=== PATIENT | female | born 1955 | race African-American/Black ===

== ENCOUNTER 2016-12-14 15:43 | Day surgery (SDC) | payer MEDICARE, MEDICAID ==
[~2016-12-14 15:43] MED LIST: NALOXONE HCL INJ/PF 0.4 MG/1 ML SDV ONE
[2016-12-14] MEDS ORDERED: FENTANYL CITRATE INJ/PF 100 MCG/2 ML AMPUL ONE (15:44)
[2016-12-14] MEDS ORDERED: FLUMAZENIL INJ 0.5 MG/5 ML VIAL IV ONE (15:44)
[2016-12-14] MEDS ORDERED: EPINEPHRINE INJ 1 MG/10 ML DISP.SYRIN ONE (15:45)
[2016-12-14] MEDS ORDERED: GLUCAGON,HUMAN RECOMB 1 MG INJ ONE (15:45)
[2016-12-14] MEDS: MIDAZOLAM 2 MG/2 ML INJ ONE ×2 (16:44→16:58)
--- NOTE | 2016-12-14 17:17 | Operative Report ---
Operative Report DATE OF SURGERY: 12/14/16 Operative Report: Pre-op diagnosis: Dysphagia and malfunctioning gastrostomy tube Post-op diagnosis: Gastric foreign body Surgery: Esophagogastroduodenoscopy with foreign body(gastric tube bumper) removal and replacement of G-tube Medications: Versed 2mg Fentanyl 50mcg IV push Tissue removed: None Procedure: After informed consent obtained from patient family, the throat was sprayed with Hurricane and conscious sedation was achieved. The upper endoscope was inserted into the esophagus under direct vision and advanced into the stomach. The duodenum was entered and examined to the second part. An old 20F G-tube was identified in the gastric body. I attempted to remove this tube by pulling from the outside but the bumper will not collapse. The tube was then cut close to the abdominal wall while the inner bumper was grasped with a Horvath net. It was difficult getting the foreign body out using the Horvath net. The polypectomy snare was then used and I was able to pulled the bumper out of the patient. A 22 Argentine replacement gastrostomy tube was placed the balloon filled with 6mls of water. Endoscope was then slowly pulled out of the patient as the mucosa was examined into details. Patient tolerated procedure well. Findings Esophagus: Normal Antrum: Normal Body: Gastrostomy tube in place Fundus: Normal Duodenum first part: Normal Duodenum second part: Normal Plan: Resume feeding OPERATION: .
[2016-12-14 18:10] VITALS: BP 158/66
== END 2016-12-14 18:45 | disposition other institution (70) ==
LOC: END 15:43
PROVIDERS: ATTEND Internal Medicine Gastroenterology
PROC: 0D20XUZ Change Feeding Device in Upper Intestinal Tract, External Approach (ICD-10-PCS; principal; 2016-12-14 16:15)
PROC: 0DC68ZZ Extirpation of Matter from Stomach, Via Natural or Artificial Opening Endoscopic (ICD-10-PCS; 2016-12-14 16:15)
DX: T18.2XXA Foreign body in stomach, initial encounter (principal); X58.XXXA Exposure to other specified factors, initial encounter; R63.3 Feeding difficulties; I69.391 Dysphagia following cerebral infarction; Z93.1 Gastrostomy status; I10 Essential (primary) hypertension; E11.9 Type 2 diabetes mellitus without complications; E78.00 Pure hypercholesterolemia, unspecified; F41.9 Anxiety disorder, unspecified; F32.9 Major depressive disorder, single episode, unspecified; K21.9 Gastro-esophageal reflux disease without esophagitis; G40.909 Epilepsy, unspecified, not intractable, without status epilepticus; F25.9 Schizoaffective disorder, unspecified; F80.2 Mixed receptive-expressive language disorder; Z79.899 Other long term (current) drug therapy; Z79.82 Long term (current) use of aspirin; Z79.4 Long term (current) use of insulin; Z79.02 Long term (current) use of antithrombotics/antiplatelets; Z85.3 Personal history of malignant neoplasm of breast
CPT/HCPCS: 43760; 43247; 82962; J2250; J3010; J0171; J1610; J2310; J3490

== ENCOUNTER 2017-05-20 04:17 | Emergency (ER) | payer MEDICARE, MEDICAID ==
--- NOTE | 2017-05-20 04:58 | RADIOLOGY REPORT (SQ) ---
EXAM DESCRIPTION: SOFT TISSUE NECK COMPLETED DATE/TIME: 05/20/2017 4:48 am REASON FOR STUDY: ? swallowed foreign body (teeth) COMPARISON: None. NUMBER OF VIEWS: 2. TECHNIQUE: AP and lateral radiographic image of the soft tissues of the neck. LIMITATIONS: None. FINDINGS: EPIGLOTTIS: Normal. Contour normal. Aryepiglottic folds normal. PREVERTEBRAL SOFT TISSUES: Normal. No soft tissue swelling. SUBGLOTTIC AREA: Normal. No narrowing. RETROPHARYNGEAL SPACE: Normal. No soft tissue masses. BONES: No significant findings. Thoracic spinal hardware partially imaged. LUNG APICES: Mild interstitial markings. OTHER: No radiopaque foreign body. Atherosclerosis. IMPRESSION: NEGATIVE STUDY OF THE SOFT TISSUES OF THE NECK. No radiopaque foreign body, as queried. TECHNICAL DOCUMENTATION: JOB ID: [id number] [employer]- All Rights Reserved
--- NOTE | 2017-05-20 05:01 | RADIOLOGY REPORT (SQ) ---
EXAM DESCRIPTION: CHEST SINGLE VIEW COMPLETED DATE/TIME: 05/20/2017 4:48 am REASON FOR STUDY: swallowed foreign body COMPARISON: 12/30/2015. EXAM PARAMETERS: NUMBER OF VIEWS: One view. TECHNIQUE: Single frontal radiographic view of the chest acquired. RADIATION DOSE: NA LIMITATIONS: None. FINDINGS: LUNGS AND PLEURA: No opacities, masses or pneumothorax. No pleural effusion. MEDIASTINUM AND HILAR STRUCTURES: No masses. Contour normal. HEART AND VASCULAR STRUCTURES: Mild enlargement of the cardiac silhouette. Atherosclerosis. BONES: No acute findings. HARDWARE: Extensive thoracolumbar spinal hardware, partially imaged. OTHER: No other significant finding. IMPRESSION: NO ACUTE RADIOGRAPHIC FINDING IN THE CHEST. No radiopaque foreign body. TECHNICAL DOCUMENTATION: JOB ID: [id number]
--- NOTE | 2017-05-20 05:32 | ER Document Report ---
ED General - General Chief Complaint: possible foreign body Stated Complaint: POSSIBLY SWALLOWED FOREIGN OBJECT Time Seen by Provider: 05/20/17 05:30 Notes: Patient is a 62-year-old female [facility] because they were cleaning her [facility] and 2 of her teeth broke free and she swallowed them. The apparently immediately then tried to do the Heimlich maneuver on her several times and this did not work and therefore they sent her to the ER. Patient currently is in no distress and looks well. She has no difficulty breathing. No stridor. She is nonverbal and unable to answer my questions. She does not eat by mouth and has a feeding tube in place. TRAVEL OUTSIDE OF THE [place] IN LAST 30 DAYS: No - Related Data Allergies/Adverse Reactions: latex [Latex] Allergy (Verified 12/14/16 16:09) Past Medical History - Social History Smoking Status: Unknown if Ever Smoked Chew tobacco use (# tins/day): No Frequency of alcohol use: None Drug Abuse: None Family History: Reviewed & Not Pertinent - Past Medical History Cardiac Medical History: Reports: Hx Coronary Artery Disease - HYPERCHOLESTEROLEMIA, Hx Hypercholesterolemia, Hx Hypertension Denies: Hx Heart Attack Pulmonary Medical History: Denies: Hx Asthma, Hx Bronchitis, Hx COPD, Hx Pneumonia Neurological Medical History: Reports: Hx Cerebrovascular Accident - SEP 2012, Hx Seizures - denies, states strokes, hospital notes states seizures Endocrine Medical History: Reports: Hx Diabetes Mellitus Type 2 Renal/ Medical History: Denies: Hx Peritoneal Dialysis GI Medical History: Reports: Hx Irritable Bowel - Constipation Musculoskeltal Medical History: Reports Hx Arthritis, Reports Hx Musculoskeletal Deformity - Scoliosis Psychiatric Medical History: Reports: Hx Depression Past Surgical History: Reports: Hx Lumpectomy, Hx Orthopedic Surgery - Scoliosis surgery, Hx Tubal Ligation. Denies: Hx Hysterectomy - Immunizations Immunizations up to date: Yes Hx Diphtheria, Pertussis, Tetanus Vaccination: Yes Hx Pneumococcal Vaccination: 09/05/12 Review of Systems - Review of Systems -: Yes ROS unobtainable due to patient's medical condition - Patient is nonverbal. Physical Exam - Vital signs Vitals: Pulse Resp BP Pulse Ox 55 L 12 141/64 H 94 05/20/17 04:26 05/20/17 04:26 05/20/17 04:26 05/20/17 04:26 - Notes Notes: General Appearance: Well nourished, alert, cooperative, no acute distress, no obvious discomfort. Vitals: reviewed, See vital signs table. Head: no swelling or tenderness to the head Eyes: PERRL, EOMI, Conjuctiva clear Mouth: No decreasd moisture. Patient does have a small amount of drool on initial exam. When I wipe this away she does not make much more trouble. She is able to actively swallow her saliva without any apparent difficulty. No blood in the mouth. Throat: No tonsillar inflammation, No airway obstruction, No lymphadenopathy Neck: Supple, no neck tenderness, No thyromegaly Lungs: No wheezing, No rales, No rhonci, No accessory muscle use, good air exchange bilaterally. No stridor. Heart: Normal rate, Regular rythm, No murmur, no rub Abdomen: Normal BS, soft, No rigidity, No abdominal tenderness, No guarding, no rebound, no abdominal masses, no organomegaly Extremities: strength 5/5 in all extremities, good pulses in all extremities, no swelling or tenderness in the extremities, no edema. Skin: warm, dry, appropriate color, no rash Neuro: Awake and alert. Patient is nonverbal. Course - Re-evaluation Re-evalutation: 05/20/17 06:56 At this time I do not think there is any further intervention needed. It is highly unlikely that her teeth will cause any perforation or injury to her gastrointestinal tract. At this time I feel she is safe to be discharged home. She is acting appropriately. She has no signs of airway compromise. We [facility] I placed the discharge instructions that she should still return to ER immediately if she has any spitting up of blood, fevers, appears to be in any distress, or has any difficulty breathing. Dictation of this chart was performed using voice recognition software; therefore, there may be some unintended grammatical errors. - Vital Signs Vital signs: Temp Pulse Resp BP Pulse Ox 55 L 12 141/64 H 94 05/20/17 04:26 05/20/17 04:26 05/20/17 04:26 05/20/17 04:26 Discharge - Discharge Clinical Impression: Swallowed foreign body Qualifiers: Encounter type: initial encounter Qualified Code(s): T18.9XXA - Foreign body of alimentary tract, part unspecified, initial encounter Condition: Good Disposition: HOME, SELF-CARE Additional Instructions: The swallowed teeth should pass through the GI tract without difficulty. It is still important to watch out for certain symptoms. Please have patient return to the ER if she has difficulty breathing, vomiting, spitting up of blood, fevers, or appears unwell.
[2017-05-20 07:32] VITALS: BP 141/65
== END 2017-05-20 06:07 | disposition home or self-care (01) ==
LOC: ER 04:17
DX: T18.9XXA Foreign body of alimentary tract, part unspecified, initial encounter (principal); X58.XXXA Exposure to other specified factors, initial encounter
CPT/HCPCS: 70360; 71010; 99284

== ENCOUNTER 2017-05-20 07:53 | Emergency (ER) | payer MEDICARE, MEDICAID ==
[2017-05-20 08:37] LABS: ABSOLUTE EOSINOPHILS # (AUTO) 0.1 10^3/uL (0.0-0.6); ABSOLUTE LYMPHOCYTES (AUTO) 2.2 10^3/uL (0.5-4.7); ABSOLUTE MONOCYTES (AUTO) 0.7 10^3/uL (0.1-1.4); ABSOLUTE NEUT (AUTO) 9.3 10^3/uL (1.7-8.2); BASOPHILS % (AUTO) 0.2 % (0-2); EOSINOPHILS % (AUTO) 0.9 % (0-6); HEMATOCRIT 38.8 % (36.0-47.0); HEMOGLOBIN 12.9 g/dL (12.0-15.5); HGB HCT DIFFERENCE -0.1; MEAN CORPUSCULAR HEMOGLOBIN 29.4 pg (27.0-33.4); MEAN CORPUSCULAR HGB CONC 33.3 g/dL (32.0-36.0); MEAN CORPUSCULAR VOLUME 88 fl (80-97); MONOCYTES % (AUTO) 5.3 % (3-13); RED BLOOD COUNT 4.39 10^6/uL (3.72-5.28); RED CELL DISTRIBUTION WIDTH 14.6 % (11.5-14.0); SEGMENTED NEUTROPHILS % (AUTO) 75.6 % (42-78); WHITE BLOOD COUNT 12.3 10^3/uL (4.0-10.5)
[2017-05-20 08:44] LABS: PROTHROMBIN TIME 13.9 SEC (11.4-15.4)
[2017-05-20 08:54] LABS: ALANINE AMINOTRANSFERASE 33 U/L (9-52); ALBUMIN 4.2 g/dL (3.5-5.0); ALKALINE PHOSPHATASE 102 U/L (38-126); ANION GAP 10 (5-19); ASPARTATE AMINO TRANSFERASE 25 U/L (14-36); BILIRUBIN,DIRECT 0.4 mg/dL (0.0-0.4); BILIRUBIN,TOTAL 0.4 mg/dL (0.2-1.3); BLOOD UREA NITROGEN 20 mg/dL (7-20); CALCIUM 10.3 mg/dL (8.4-10.2); CARBON DIOXIDE 37 mmol/L (22-30); CHLORIDE 100 mmol/L (98-107); CREATININE RESULT 0.58 mg/dL (0.52-1.25); GLUCOSE 131 mg/dL (75-110); POTASSIUM 4.4 mmol/L (3.6-5.0); SODIUM 147.1 mmol/L (137-145); TOTAL PROTEIN 7.6 g/dL (6.3-8.2)
--- NOTE | 2017-05-20 09:03 | ER Document Report ---
ED General - General Chief Complaint: Mouth Problem Stated Complaint: MOUTH PAIN Time Seen by Provider: 05/20/17 08:08 Mode of Arrival: Ambulatory Information source: Patient Notes: 62-year-old female history of 2 previous CVAs who was seen here earlier this morning per physician documentation that she may have swallowed 2 teeth presents back with blood in her mouth TRAVEL OUTSIDE OF THE [place] IN LAST 30 DAYS: No - HPI Onset: Just prior to arrival Onset/Duration: Sudden Quality of pain: No pain Severity: None Pain Level: Denies Associated symptoms: Other Exacerbated by: Denies Relieved by: Denies Similar symptoms previously: No Recently seen / treated by doctor: Yes - Related Data Allergies/Adverse Reactions: latex [Latex] Allergy (Verified 12/14/16 16:09) Past Medical History - Social History Smoking Status: Never Smoker Cigarette use (# per day): No Chew tobacco use (# tins/day): No Smoking Education Provided: No Family History: Reviewed & Not Pertinent - Past Medical History Cardiac Medical History: Reports: Hx Coronary Artery Disease - HYPERCHOLESTEROLEMIA, Hx Hypercholesterolemia, Hx Hypertension Denies: Hx Heart Attack Pulmonary Medical History: Denies: Hx Asthma, Hx Bronchitis, Hx COPD, Hx Pneumonia Neurological Medical History: Reports: Hx Cerebrovascular Accident - SEP 2012, Hx Seizures - denies, states strokes, hospital notes states seizures Endocrine Medical History: Reports: Hx Diabetes Mellitus Type 2 Renal/ Medical History: Denies: Hx Peritoneal Dialysis GI Medical History: Reports: Hx Irritable Bowel - Constipation Musculoskeltal Medical History: Reports Hx Arthritis, Reports Hx Musculoskeletal Deformity - Scoliosis Psychiatric Medical History: Reports: Hx Depression Past Surgical History: Reports: Hx Lumpectomy, Hx Orthopedic Surgery - Scoliosis surgery, Hx Tubal Ligation. Denies: Hx Hysterectomy - Immunizations Immunizations up to date: Yes Hx Diphtheria, Pertussis, Tetanus Vaccination: Yes Hx Pneumococcal Vaccination: 09/05/12 Review of Systems - Review of Systems Notes: REVIEW OF SYSTEMS: CONSTITUTIONAL : Denies fever, chills, or sweats. Denies recent illness. EENT: blood in mouth CARDIOVASCULAR: Denies chest pain. Denies palpitations or racing or irregular heart beat. Denies ankle edema. RESPIRATORY: Denies cough, cold, or chest congestion. Denies shortness of breath, difficulty breathing, or wheezing. GASTROINTESTINAL: Denies abdominal pain or distention. Denies nausea, vomiting , or diarrhea. Denies blood in vomitus, stools, or per rectum. Denies black, tarry stools. Denies constipation. GENITOURINARY: Denies difficulty urinating, painful urination, burning, frequency, blood in urine, or discharge. FEMALE GENITOURINARY: Denies vaginal bleeding, heavy or abnormal periods, irregular periods. Denies vaginal discharge or odor. MUSCULOSKELETAL: Denies back or neck pain or stiffness. Denies joint pain or swelling. SKIN: Denies rash, lesions or sores. HEMATOLOGIC : Denies easy bruising or bleeding. LYMPHATIC: Denies swollen, enlarged glands. NEUROLOGICAL: Denies confusion or altered mental status. Denies passing out or loss of consciousness. Denies dizziness or lightheadedness. Denies headache. Denies weakness or paralysis or loss of use of either side. Denies problems with gait or speech. Denies sensory loss, numbness, or tingling. Denies seizures. PSYCHIATRIC: Denies anxiety or stress. Denies depression, suicidal ideation, or homicidal ideation. ALL OTHER SYSTEMS REVIEWED AND NEGATIVE. PHYSICAL EXAMINATION: GENERAL: Well-appearing, well-nourished and in no acute distress. HEAD: Atraumatic, normocephalic. EYES: Pupils equal round and reactive to light, extraocular movements intact, conjunctiva are normal. ENT: Nares patent, oropharynx clear without exudates. Moist mucous membranes. foamy blood in mouth NECK: Normal range of motion, supple without lymphadenopathy LUNGS: Breath sounds clear to auscultation bilaterally and equal. No wheezes rales or rhonchi. HEART: Regular rate and rhythm without murmurs ABDOMEN: Soft, nontender, nondistended abdomen. No guarding, no rebound. No masses appreciated. Female : deferred Musculoskeletal: Normal range of motion, no pitting or edema. No cyanosis. NEUROLOGICAL: baseline mentation PSYCH: Normal mood, normal affect. SKIN: Warm, Dry, normal turgor, no rashes or lesions noted. Dictation was performed using [employer] voice recognition software Physical Exam - Vital signs Vitals: Temp Pulse Resp BP Pulse Ox 98.1 F 72 20 146/86 H 94 05/20/17 08:23 05/20/17 08:23 05/20/17 08:23 05/20/17 08:23 05/20/17 08:23 Course - Re-evaluation Re-evalutation: 05/20/17 09:46 bleeding has slowed per , labs are normal otherwise 05/20/17 10:26 Patient reevaluated is breathing comfortably there is no active bleeding noted 05/20/17 11:13 Patient reevaluated again now has large amount of bleeding, with the assistance of another physician multiple staff members I was able to open her mouth even wider there is no bleeding from the gums but I believe it might be coming from the tongue, I will have to do conscious sedation on the patient at this time 05/20/17 11:23 gives verbal consent 05/20/17 12:08 conscious sedation performed , 05/20/17 12:13 ENT paged, he will evaluate patient 05/20/17 12:46 second conscious sedation performed to assist Dr pastrana evaluated and cauterized 2 areas on the gum [facility] paged for consult 05/20/17 12:51 Dr Washington requests transfer 05/20/17 13:18 pt has been stable and not vomtiing or bleeding at all agrees 05/20/17 13:30 Based on story GI specialist states that this does not appear to be GI in nature that is probably from the larynx he defers on admission 05/20/17 13:52 ENT does not believe it is larynx, since bleeding has since stopped he does not believe patient needs to be transferred. 05/20/17 13:53 05/20/17 14:03 Patient has completely stopped bleeding and has been watched for 45 minutes without any blood at all, I believe she is stable for discharge her agrees 05/20/17 16:05 pt reevaluated, again no bleeding noted, will dc home After performing a Medical Screening Examination, I estimate there is LOW risk for ACUTE CORONARY SYNDROME, RESPIRATORY FAILURE, SEPSIS OR MENINGITIS, thus I consider the discharge disposition reasonable. I have reevaluated this patient multiple times and no significant life threatening changes are noted. The patients and I have discussed the diagnosis and risks, and we agree with discharging home with close follow-up. We also discussed returning to the Emergency Department immediately if new or worsening symptoms occur. We have discussed the symptoms which are most concerning (e.g., changing or worsening pain, trouble swallowing or breathing, neck stiffness, fever) that necessitate immediate return. - Vital Signs Vital signs: Temp Pulse Resp BP Pulse Ox 98.1 F 73 17 147/73 H 100 05/20/17 14:09 05/20/17 14:09 05/20/17 15:01 05/20/17 15:01 05/20/17 15:01 - Laboratory Result Diagrams: 05/20/17 08:15 05/20/17 08:15 Laboratory results interpreted by me: 05/20/17 05/20/17 08:15 08:15 WBC 12.3 H RDW 14.6 H Absolute Neutrophils 9.3 H Sodium 147.1 H Carbon Dioxide 37 H Glucose 131 H Calcium 10.3 H Procedures - Conscious Sedation Conscious sedation Time started: 12:00 Discharge - Discharge Clinical Impression: Oral bleeding, H/O: CVA (cerebrovascular accident) Condition: Stable Disposition: HOME, SELF-CARE Additional Instructions: Return immediately if there is any bleeding at all Referrals: JEREMÍAS HIRSCH MD [Primary Care Provider] - Follow up as needed
[2017-05-20] MEDS ORDERED: KETAMINE HCL INJ 500 MG/10 ML VIAL IV ONE (11:13)
[2017-05-20] MEDS ORDERED: ONDANSETRON HCL INJ/PF 4 MG/2 ML SDV IV ONE (12:25)
[2017-05-20 16:18] VITALS: BP 141/64
== END 2017-05-20 16:30 | disposition home or self-care (01) ==
LOC: ER 07:53
DX: K08.89 Other specified disorders of teeth and supporting structures (principal); K13.79 Other lesions of oral mucosa; Z86.73 Personal history of transient ischemic attack (TIA), and cerebral infarction without residual deficits
CPT/HCPCS: 99284; 96374; 96375; 36415; 85025; 85610; 80053; J3490; J2405

== ENCOUNTER 2017-10-16 18:17 | Emergency (ER) | payer MEDICARE, MEDICAID ==
[2017-10-16 18:36] LABS: ABSOLUTE EOSINOPHILS # (AUTO) 0.1 10^3/uL (0.0-0.6); ABSOLUTE LYMPHOCYTES (AUTO) 0.4 10^3/uL (0.5-4.7); ABSOLUTE MONOCYTES (AUTO) 0.6 10^3/uL (0.1-1.4); ABSOLUTE NEUT (AUTO) 4.4 10^3/uL (1.7-8.2); BASOPHILS % (AUTO) 0.7 % (0-2); EOSINOPHILS % (AUTO) 2.6 % (0-6); HEMOGLOBIN 11.4 g/dL (12.0-15.5); LYMPHOCYTES % (AUTO) 7.7 % (13-45); MEAN CORPUSCULAR HEMOGLOBIN 27.6 pg (27.0-33.4); MEAN CORPUSCULAR HGB CONC 32.6 g/dL (32.0-36.0); MEAN CORPUSCULAR VOLUME 85 fl (80-97); MONOCYTES % (AUTO) 11.2 % (3-13); PLATELET COUNT 192 10^3/uL (150-450); RED BLOOD COUNT 4.13 10^6/uL (3.72-5.28); RED CELL DISTRIBUTION WIDTH 18.1 % (11.5-14.0); SEGMENTED NEUTROPHILS % (AUTO) 77.8 % (42-78); TOTAL CELLS COUNTED % (AUTO) 100 %; WHITE BLOOD COUNT 5.7 10^3/uL (4.0-10.5)
--- NOTE | 2017-10-16 18:47 | RADIOLOGY REPORT (SQ) ---
EXAM DESCRIPTION: CHEST SINGLE VIEW COMPLETED DATE/TIME: 10/16/2017 6:39 pm REASON FOR STUDY: bed 7 db COMPARISON: 05/20/2017 EXAM PARAMETERS: NUMBER OF VIEWS: One view. TECHNIQUE: Single frontal radiographic view of the chest acquired. RADIATION DOSE: NA LIMITATIONS: None. FINDINGS: LUNGS AND PLEURA: No opacities, masses or pneumothorax. No pleural effusion. MEDIASTINUM AND HILAR STRUCTURES: No masses. Contour normal. HEART AND VASCULAR STRUCTURES: Heart normal in size. Normal vasculature. BONES: No acute findings. HARDWARE: Joseph rods. OTHER: No other significant finding. IMPRESSION: NO ACUTE RADIOGRAPHIC FINDING IN THE CHEST. TECHNICAL DOCUMENTATION: JOB ID: [id number] [employer]- All Rights Reserved
[2017-10-16 18:54] LABS: ALANINE AMINOTRANSFERASE 52 U/L (9-52); ALBUMIN 3.3 g/dL (3.5-5.0); ALKALINE PHOSPHATASE 72 U/L (38-126); ANION GAP 5 (5-19); ASPARTATE AMINO TRANSFERASE 62 U/L (14-36); BILIRUBIN,DIRECT 0.3 mg/dL (0.0-0.4); BILIRUBIN,TOTAL 0.3 mg/dL (0.2-1.3); BLOOD UREA NITROGEN 25 mg/dL (7-20); CALCIUM 9.6 mg/dL (8.4-10.2); CARBON DIOXIDE 32 mmol/L (22-30); CHLORIDE 102 mmol/L (98-107); CREATINE KINASE 109 U/L (30-135); GLUCOSE 158 mg/dL (75-110); POTASSIUM 4.1 mmol/L (3.6-5.0); SODIUM 139.3 mmol/L (137-145); TOTAL PROTEIN 6.7 g/dL (6.3-8.2)
[2017-10-16 19:10] LABS: CREATINE KINASE MB 0.35 ng/mL (<4.55); NT PRO BNP 96 pg/mL (5-900)
[2017-10-16 19:12] LABS: TROPONIN I < 0.012 ng/mL
--- NOTE | 2017-10-16 20:09 | ER Document Report ---
ED General - General Chief Complaint: CHF Exacerbation Stated Complaint: WEAKNESS Time Seen by Provider: 10/16/17 18:54 Cannot obtain history due to: Dementia, Other - Nonverbal Notes: Patient is a 62-year-old female with a history of a dense expressive and receptive aphasia secondary to his prior stroke as well as dementia who presents with [facility] concerns that she has developed CHF. A chest x-ray was obtained today for unclear reasons and apparently was concerning for pulmonary vascular congestion. She was subsequently referred to the emergency department for further evaluation. No additional history can be obtained secondary to patient's nonverbal status. Her sister is at the bedside but does not know any additional information about what brought the patient to the emergency department today. She does not think the patient has a history of CHF. TRAVEL OUTSIDE OF THE [place] IN LAST 30 DAYS: No - Related Data Allergies/Adverse Reactions: latex [Latex] Allergy (Verified 12/14/16 16:09) Past Medical History - General Information source: Relative, Transfer Record Cannot obtain history due to: Dementia, Other - Nonverbal - Social History Smoking Status: Unknown if Ever Smoked Chew tobacco use (# tins/day): No Frequency of alcohol use: None Drug Abuse: None Lives with: Intermediate Family History: Reviewed & Not Pertinent Patient has suicidal ideation: No Patient has homicidal ideation: No - Past Medical History Cardiac Medical History: Reports: Hx Coronary Artery Disease - HYPERCHOLESTEROLEMIA, Hx Hypercholesterolemia, Hx Hypertension Denies: Hx Heart Attack Pulmonary Medical History: Denies: Hx Asthma, Hx Bronchitis, Hx COPD, Hx Pneumonia Neurological Medical History: Reports: Hx Cerebrovascular Accident - SEP 2012, Hx Seizures - denies, states strokes, hospital notes states seizures Endocrine Medical History: Reports: Hx Diabetes Mellitus Type 2 Renal/ Medical History: Denies: Hx Peritoneal Dialysis GI Medical History: Reports: Hx Irritable Bowel - Constipation Musculoskeltal Medical History: Reports Hx Arthritis, Reports Hx Musculoskeletal Deformity - Scoliosis Psychiatric Medical History: Reports: Hx Depression Past Surgical History: Reports: Hx Abdominal Surgery - G-tube placement, Hx Lumpectomy, Hx Orthopedic Surgery - Scoliosis surgery, Hx Tubal Ligation. Denies: Hx Hysterectomy - Immunizations Immunizations up to date: Yes Hx Diphtheria, Pertussis, Tetanus Vaccination: Yes Hx Pneumococcal Vaccination: 09/05/12 Review of Systems - Review of Systems -: Yes ROS unobtainable due to patient's medical condition Physical Exam - Vital signs Vitals: Pulse Resp BP Pulse Ox 75 24 H 93/53 L 98 10/16/17 18:20 10/16/17 18:20 10/16/17 18:20 10/16/17 18:20 Interpretation: Hypotensive Notes: PHYSICAL EXAMINATION: GENERAL: No acute distress HEAD: Atraumatic, normocephalic. EYES: Pupils equal round and reactive to light, extraocular movements intact, sclera anicteric, conjunctiva are normal. ENT: nares patent, oropharynx clear without exudates. Moderately dry mucous membranes. NECK: Normal range of motion, supple without lymphadenopathy LUNGS: Breath sounds clear to auscultation bilaterally and equal. No wheezes rales or rhonchi. HEART: Regular rate and rhythm without murmurs ABDOMEN: Soft, nontender, normoactive bowel sounds. No guarding, no rebound. No masses appreciated. EXTREMITIES: no pitting or edema. No cyanosis. PSYCH: Nonverbal SKIN: Warm, Dry, normal turgor, no rashes or lesions noted. Course - Re-evaluation Re-evalutation: 10/16/17 20:06 Patient presents as a transfer from a nursing facility with concerns of possible volume overload and new onset CHF. The chest x-ray read that comes the patient notes vascular congestion. A chest x-ray here does not demonstrate any evidence whatsoever of pulmonary vascular congestion, pulmonary edema or cardiomegaly. ProBNP is within normal limits. I do not believe that the chest x-ray prior to arrival was accurate. Patient is otherwise at her baseline, vitals within normal limits with the exception of borderline hypotension the patient did receive her blood pressure medicines prior to coming to the facility. Patient is nonverbal but family at bedside states that she appears quite well and better than she has in the past several days. Given her reassuring labs, and the absence of anything to suggest a concern for which she was sent, will discharge back to facility with return precautions and follow-up recommendations. - Vital Signs Vital signs: Temp Pulse Resp BP Pulse Ox 98.6 F 65 24 H 99/56 L 98 10/16/17 20:07 10/16/17 19:39 10/16/17 20:07 10/16/17 20:01 10/16/17 20:07 - Laboratory Result Diagrams: 10/16/17 18:24 10/16/17 18:24 Laboratory results interpreted by me: 10/16/17 10/16/17 18:24 18:24 Hgb 11.4 L Hct 35.0 L RDW 18.1 H Lymphocytes % 7.7 L Absolute Lymphocytes 0.4 L Carbon Dioxide 32 H BUN 25 H Creatinine 0.50 L Glucose 158 H AST 62 H Albumin 3.3 L - Diagnostic Test Radiology reviewed: Image reviewed, Reports reviewed Radiology results interpreted by me: 10/16/17 20:08 Chest x-ray: No acute infiltrate, cardiomegaly or pneumothorax Discharge - Discharge Clinical Impression: Well adult health check, Chest x-ray abnormality Condition: Good Disposition: HOME, SELF-CARE Additional Instructions: Chest x-ray and labs here do not suggest any evidence of congestive failure. Return for any additional concerns. Referrals: JEREMÍAS HIRSCH MD [Primary Care Provider] - Follow up as needed
[2017-10-16 20:34] VITALS: BP 99/56
--- NOTE | 2017-10-16 20:54 | EKG REPORT ---
SEVERITY:- BORDERLINE ECG - SINUS RHYTHM LOW VOLTAGE IN FRONTAL LEADS BORDERLINE R WAVE PROGRESSION, ANTERIOR LEADS BORDERLINE T WAVE ABNORMALITIES : Confirmed by: Moreno Kendall 16-Oct-2017 20:53:40
== END 2017-10-16 20:45 | disposition home or self-care (01) ==
LOC: ER 18:17
DX: R91.8 Other nonspecific abnormal finding of lung field (principal); E11.9 Type 2 diabetes mellitus without complications; I25.10 Atherosclerotic heart disease of native coronary artery without angina pectoris; I10 Essential (primary) hypertension; F03.90 Unspecified dementia, unspecified severity, without behavioral disturbance, psychotic disturbance, mood disturbance, and anxiety; I69.320 Aphasia following cerebral infarction; Z91.040 Latex allergy status; Z79.899 Other long term (current) drug therapy
CPT/HCPCS: 36415; 71045; 80053; 82550; 82553; 83880; 84484; 85025; 93005; 93010; 99285

== ENCOUNTER 2017-10-27 11:26 | Emergency (ER) | payer MEDICARE, MEDICAID ==
--- NOTE | 2017-10-27 15:26 | ER Document Report ---
ED General - General Stated Complaint: CARDIAC ARREST Time Seen by Provider: 10/27/17 11:27 Notes: Patient is a resident of [facility] our [facility], [place], who reportedly had a fever today and rapid respirations. EMS says that upon arrival at the detention, patient was being changed and she was heard to have some gurgling respirations and moaning, concerning EMS for possible aspiration. In route here , patient stopped breathing and her heart went into asystole. CPR was initiated and in progress when the patient arrived here. Vascular access has not been achieved. Patient is , but resides at [facility]. She is nonverbal and nonambulatory. She has had multiple prior strokes leaving her in this condition. She also has a feeding tube. TRAVEL OUTSIDE OF THE [place] IN LAST 30 DAYS: No - Related Data Allergies/Adverse Reactions: latex [Latex] Allergy (Verified 12/14/16 16:09) Past Medical History - Social History Smoking Status: Unknown if Ever Smoked Cigarette use (# per day): No Family History: Reviewed & Not Pertinent - Past Medical History Cardiac Medical History: Reports: Hx Coronary Artery Disease - HYPERCHOLESTEROLEMIA, Hx Hypercholesterolemia, Hx Hypertension Denies: Hx Heart Attack Pulmonary Medical History: Denies: Hx Asthma, Hx Bronchitis, Hx COPD, Hx Pneumonia Neurological Medical History: Reports: Hx Cerebrovascular Accident - SEP 2012, Hx Seizures - denies, states strokes, hospital notes states seizures Endocrine Medical History: Reports: Hx Diabetes Mellitus Type 2 GI Medical History: Reports: Hx Irritable Bowel - Constipation Musculoskeltal Medical History: Reports Hx Arthritis, Reports Hx Musculoskeletal Deformity - Scoliosis Psychiatric Medical History: Reports: Hx Depression Past Surgical History: Reports: Hx Abdominal Surgery - G-tube placement, Hx Lumpectomy, Hx Orthopedic Surgery - Scoliosis surgery, Hx Tubal Ligation. Denies: Hx Hysterectomy - Immunizations Immunizations up to date: Yes Hx Diphtheria, Pertussis, Tetanus Vaccination: Yes Hx Pneumococcal Vaccination: 09/05/12 Review of Systems - Review of Systems -: Yes ROS unobtainable due to patient's medical condition - Patient cannot verbalize any answers and she is unconscious d/t CPR Physical Exam - Notes Notes: PHYSICAL EXAMINATION: No vital signs obtainable. GENERAL: CPR in progress by EMS.. HEAD: Atraumatic, normocephalic. EYES: Pupils equal round and reactive to light, extraocular movements intact. ENT: oropharynx clear without exudates. Moist mucous membranes. NECK: Normal range of motion, supple. LUNGS: Breath sounds clear and equal bilaterally by bag mask. HEART: No heartbeat heard and no pulses felt. ABDOMEN: Soft, nontender. No guarding or rebound. No masses. Gastric tube in mid abdomen. NEUROLOGICAL: Patient is unresponsive. Has no neurologic function. SKIN: Warm, dry, no rashes. No evidence of contusions, abrasions, or other trauma. Course - Re-evaluation Re-evalutation: 10/27/17 15:26 Patient has no spontaneous respirations, has asystole on the security monitor and based upon her past history of being nonverbal and nonambulatory, I do not think this patient has any chance of survival out of hospital and feel that all efforts at resuscitation should be stopped. CPR was stopped and the patient was pronounced at 11:[address] Weiss, patient's primary care provider, and advised him of the patient's . He agreed to sign the patient's certificate. Shortly thereafter the patient's , her was contacted and he came to the emergency department and I made him aware of what had happened with his . Discharge - Discharge Clinical Impression: , Asystole Disposition: Referrals: JEREMÍAS HIRSCH MD [Primary Care Provider] - Follow up as needed
== END 2017-10-27 14:15 | disposition expired ==
LOC: ER 11:26
DX: I46.9 Cardiac arrest, cause unspecified (principal); R50.9 Fever, unspecified; Z91.040 Latex allergy status; E78.00 Pure hypercholesterolemia, unspecified; I10 Essential (primary) hypertension; Z86.73 Personal history of transient ischemic attack (TIA), and cerebral infarction without residual deficits; E11.9 Type 2 diabetes mellitus without complications; Z93.1 Gastrostomy status; Z98.51 Tubal ligation status
CPT/HCPCS: 92950; 99285